=== PATIENT | female | born 1955 | race African-American/Black ===

== ENCOUNTER 2016-09-24 13:43 | Inpatient (IN) | payer MEDICAID ==
--- NOTE | 2016-09-24 14:30 | EDPRACDOC ---
- General Information Chief Complaint: Generalized Weakness Stated Complaint: GENERALIZED ACHING Time Seen by Provider: 09/24/16 14:24 Information Source: Patient, Family Mode of Arrival: Car Home Medications: Home Medications Albuterol Sulfate [Proair Hfa] 2 puff INH DAILY PRN 05/11/15 Amitriptyline HCl 25 mg PO QHS 05/11/15 Clonazepam [Klonopin] 0.5 mg PO BID PRN 05/11/15 Levetiracetam [Keppra] 500 mg PO BID 05/11/15 Metformin HCl [Metformin HCl ER] 500 mg PO DAILY 05/11/15 Nitroglycerin Sublingual Tab [NTG (NitroStat Sublingual Tab)] 0.4 mg SL Q5MX3 PRN 05/11/15 Pantoprazole Sodium [Protonix] 40 mg PO DAILY 05/11/15 Potassium Chloride [Klor-Con M20] 20 meq PO DAILY 05/11/15 Simvastatin [Zocor] 40 mg PO DAILY 05/11/15 Meclizine HCl [Antivert] 25 mg PO TID PRN 05/22/15 Topiramate [Topamax] 25 mg PO BID 05/22/15 Lisinopril [Prinivil] 10 mg PO DAILY #30 tablet 05/26/15 Aspirin (Enteric Coated) [Halfprin] 81 mg PO DAILY 09/24/16 Diclofenac Sodium [Voltaren] 75 mg PO BID 09/24/16 Gabapentin 800 mg PO TID 09/24/16 Metoprolol Tartrate [Lopressor] 25 mg PO BID 09/24/16 Allergies/Adverse Reactions: Allergies Allergy/AdvReac Type Severity Reaction Status Date / Time phenytoin sodium Allergy Unknown Rash-Genera Verified 05/12/16 15:36 [From Dilantin] lized phenytoin sodium extended Allergy Unknown Rash-Genera Verified 05/12/16 15:36 [From Dilantin] lized - History of Present Illness Onset: yesterday HPI: PT COMPLAINS OF GENERALIZED WEAKNESS, FEVER, CHILLS, PAIN WITH URINATION, SYMPTOMS BEGAN YESTERDAY, NO MEDS GIVEN. Relevant History: Reports: Chronic Illness Treated Infection: None Contact Exposure To: NONE Travel To: NONE Max Temperature: 103 F Improves With: Reports: Nothing Symptoms: Reports: Chills, Dysuria, Fever, Urgency, Lethargy, Myalgia, Weakness. Denies: Cough, Ear Pain, Frequency, Nasal Symptoms, Rash, SOB, Sore Throat, Abdominal Pain, Confusion, Headache, Nausea, Vomiting ED Past Medical History - History Reviewed Yes Nurses notes reviewed and agree except as marked - Patient Medical History Neurological History: Reports: Seizures Cardiac History: Reports: Hypertension, Cardiac Catheterization (04/2009 NORMAL EF NO CORONARY ARTERY DISEASE), Hypercholesterolemia GI/ History: Reports: Gastroesophageal Reflux. Denies: Urinary Tract Infection Musculoskeletal History: Reports: Arthritis Psychological History: Denies: Depression Systemic History: Reports: Diabetes Surgical History: Reports: Cholecystectomy (), Cardiac Catheterization ( NORMAL EF NO CORONARY ARTERY DISEASE) - Family Medical History Reports: Hypertension (MOTHER), Diabetes (MOTHER), Cancer (MOTHER UNKNOWN CANCER ), Cardiac Disorders (MOTHER). Denies: Stroke - Social Medical History Smoking Status: Never smoker ETOH: None Substance Abuse: None EDM Review of Systems - Review of Systems Constitutional: Chills, Fever, Fatigue, Weakness Eyes: negative: Blurred Vision, Double Vision Ears: negative: Drainage Throat: negative: Pain Nose: negative: Congestion, Discharge Respiratory: negative: Cough, Shortness of Breath, Wheezing Cardiovascular: negative: Chest Pain, Palpitations Gastrointestinal: negative: Diarrhea, Nausea, Pain, Vomiting Genitourinary: Dysuria, Frequency Neurological: Headache. negative: Dizziness, Numbness, Weakness Musculoskeletal: No Symptoms Reported Integumentary: No Symptoms Reported - Physical Exam Constitutional: Alert (Awake), No apparent distress Oriented to: Time, Person, Place Last recorded Vital Signs: Last Vital Signs Temp 103 F H 09/24/16 14:07 Pulse 119 09/24/16 14:07 Resp 21 09/24/16 14:07 BP 170/107 H 09/24/16 14:07 Pulse Ox 91 09/24/16 14:07 Oxygen Pulse Oxygen Saturation 91 O2 Device Room Air Oxygen Flow Rate Fraction of Inspired Oxygen ( FIO2) - HEENT Head: Normal ( normocephalic) Eye Exam: Normal (PERRL, EOMI, Sclera white) Oropharynx: Normal (Pharynx:Moist without exudate,Gums-no swelling) Tympanic Membrane: Normal ENT EAC: Normal TMJ: Normal Nose: No Symptoms Reported (septum midline) Neck: Normal (FROM, trachea at midline) - Respiratory/Cardiovascular Respiratory: Normal - CTA (BBS clear to auscultation without adventitious sounds ) Cardiovascular: Normal (RRR without murmur, gallop or rub) - GI Auscultation: Normal (NABS) Palpation: Normal (Soft,No rebound or guarding, non distended) Tenderness: Non tender Sahni's Sign: Negative - Musculoskeletal Back: Normal (Non-Tender) Extremities: Normal (Normal tone, Pulses 2+ No cyanosis or edema, FROM) - Integumentary Skin: Normal, Warm, Dry Lymphatics: Normal (no adenopathy) - Neurologic Memory Impaired: Normal Motor Function: Normal (Normal tone, Pulses 2+ No cyanosis or edema, FROM) Cranial Nerve: Normal (CN II-X11 intact sensation, strength 5/5) Cerebellar: Normal Mood Description: Normal Perception: Normal - Differential Diagnosis Bronchitis, Dehydration, Influenza, Otitis Media, Pneumonia, Sepsis - Re-evaluation Re-evaluation 1 Re-evaluation Time: 15:09 (STABLE, PULSE OX 96% ON 2LPM) - Results 09/24/16 14:25 09/24/16 14:25 09/24/16 15:09 Laboratory Results - last 24 hr 09/24/16 09/24/16 09/24/16 14:25 14:25 14:25 WBC 16.2 H RBC 4.06 L Hgb 11.2 L Hct 34.6 L MCV 85 MCH 27.6 MCHC 32.4 L RDW 14.7 H Plt Count 278 MPV 9.2 Neut % (Auto) 84.8 H Lymph % (Auto) 8.0 L [place] % (Auto) 6.8 Eos % (Auto) 0.0 Baso % (Auto) 0.4 Absolute Neuts (auto) 13.61 H Absolute Lymphs (auto) 1.30 PT 11.7 H INR 1.1 APTT 33.4 Puncture Site pH pCO2 pO2 HCO3 Total CO2 Base Excess FiO2 % Specimen Drawn By Sodium 144 Potassium 3.5 Chloride 103 Carbon Dioxide 25 Anion Gap 20 H BUN 26 H Creatinine 1.90 H Estimated GFR (MDRD) 33 L Glucose 121 H Calculated Osmolality 283 Lactic Acid Calcium 9.2 Total Bilirubin 0.6 AST 30 ALT 18 Alkaline Phosphatase 92 Troponin I < 0.01 Vek-J-Soiidtxrsbv Pept 1870 H Total Protein 8.6 H Albumin 4.2 09/24/16 09/24/16 14:25 14:45 WBC RBC Hgb Hct MCV MCH MCHC RDW Plt Count MPV Neut % (Auto) Lymph % (Auto) [place] % (Auto) Eos % (Auto) Baso % (Auto) Absolute Neuts (auto) Absolute Lymphs (auto) PT INR APTT Puncture Site Right radial pH 7.440 pCO2 35.0 pO2 55.0 L HCO3 23.8 Total CO2 24.9 Base Excess 0.1 FiO2 % 21% Specimen Drawn By Si Sodium Potassium Chloride Carbon Dioxide Anion Gap BUN Creatinine Estimated GFR (MDRD) Glucose Calculated Osmolality Lactic Acid 1.0 Calcium Total Bilirubin AST ALT Alkaline Phosphatase Troponin I Oto-S-Rgszzpzmasx Pept Total Protein Albumin - EKG EKG #1 EKG Time: 14:28 -: Yes EKG interpreted by me Rate: bpm: 113 [place]: Normal Rhythm: ST Block: None Hypertrophy: None ST: Nonsp Comparison: 05/22/15 (NO CHANGE) - Diagnostic Imaging CXR Image interpreted by: Radiologist CHEST 2 VIEW COMPARISON: Chest radiograph May 24, [address] May 25, 2015 FINDINGS: There is airspace consolidation in the right lower lobe. Lungs elsewhere clear. Heart is mildly enlarged with pulmonary vascularity within normal limits. No adenopathy. IMPRESSION: Right lower lobe airspace consolidation. Followup PA and lateral chest radiographs recommended in 3-4 weeks following trial of antibiotic therapy to ensure resolution and exclude underlying malignancy. - Additional Information DISCUSSED WITH DR ROMERO, HE WILL DISCUSS WITH HOSPITALIST - Departure Condition: Stable Final Diagnosis: Community acquired pneumonia, Acute respiratory failure with hypoxia Sepsis Qualifiers: Sepsis type: sepsis due to unspecified organism Qualified Code(s): A41.9 - Sepsis, unspecified organism UTI (urinary tract infection) Qualifiers: Urinary tract infection type: acute cystitis Hematuria presence: without hematuria Qualified Code(s): N30.00 - Acute cystitis without hematuria Education/Counseling Given To: Patient, Family Member Education/Counseling Given Regarding: Diagnosis, Treatment, Prognosis, Follow Up Referrals: Carmen Miller NP [Primary Care Provider] - One Week
[2016-09-24] MEDS ORDERED: ACETAMINOPHEN 325 MG/TAB TABLET PO ONE (14:31)
[2016-09-24] MEDS ORDERED: NS 1,000 ML IV ONE ×2 (14:31→16:46)
[2016-09-24 14:48] LABS: AUTOMATED BASOPHIL 0.4 % (0-2); AUTOMATED MONOCYTE 6.8 % (3-10); AUTOMATED NEUTROPHIL 84.8 % (45-76); MPV 9.2 fL (7.4-10.4)
[2016-09-24 14:49] LABS: BLOOD UREA NITROGEN 26 MG/DL (7-17); CALCIUM 9.2 MG/DL (8.4-10.2); CALCULATED OSMOLALITY 283 MOs/Kg (270-290); CHLORIDE 103 mEq/L (98-107); GLUCOSE 121 MG/DL (70-99); PARTIAL THROMB. TIME 33.4 SEC (22-35); PT-INR 1.1; SODIUM LEVEL 144 mEq/L (137-146); TOTAL PROTEIN 8.6 G/DL (6.3-8.2)
[2016-09-24 14:50] LABS: ABG Draw Site Right Radial; ALLEN'S TEST PASS; BEb 0.1 (+/- 2); TCO2 24.9 MMOL/L (23-27)
[2016-09-24 14:51] LABS: ABG Draw Tech SI
--- NOTE | 2016-09-24 14:55 | DIRPT ---
CLINICAL DATA: Fever and chills EXAM: CHEST 2 VIEW COMPARISON: Chest radiograph May 24, [address] May 25, 2015 FINDINGS: There is airspace consolidation in the right lower lobe. Lungs elsewhere clear. Heart is mildly enlarged with pulmonary vascularity within normal limits. No adenopathy. IMPRESSION: Right lower lobe airspace consolidation. Followup PA and lateral chest radiographs recommended in 3-4 weeks following trial of antibiotic therapy to ensure resolution and exclude underlying malignancy. Electronically Signed By: Awais Morrell III, M.D. On: 09/24/2016 14:53
[2016-09-24] MEDS ORDERED: Levofloxacin 750 mg/150 ml D5W 750 MG/150 ML RTU IV ONE (15:07)
[2016-09-24 16:06] LABS: LEUKOCYTES/URINE 2+ (NEGATIVE); NITRITE/URINE NEG (NEGATIVE); URINE OCCULT BLOOD 1+ (NEG/TRACE); WBC/URINE 20-30 (0-5)
[2016-09-24] MEDS ORDERED: CEFTRIAXONE 1 GM in D5W 100 ML IV ONE (16:20)
[2016-09-24] MEDS ORDERED: ONDANSETRON HCL 4 MG/2 ML VIAL IV PRN (16:46)
[2016-09-24] MEDS ORDERED: ACETAMINOPHEN 650 MG SUPP PR PRN (16:46)
[2016-09-24] MEDS ORDERED: Albuterol/Ipratropium Neb 3 ML NEB NEB PRN (16:46)
[2016-09-24] MEDS ORDERED: TEMAZEPAM 15 MG CAP PO PRN (16:46)
[2016-09-24] MEDS ORDERED: SODIUM CHLORIDE 0.9% 3 ML FLUSH FLUSH PRN (16:46)
[2016-09-24] MEDS ORDERED: DOCUSATE-SENNA CONCENTRATE TAB PO PRN (16:46)
[2016-09-24] MEDS ORDERED: SIMETHICONE 80 MG TAB PO PRN (16:46)
[2016-09-24] MEDS ORDERED: BENZONATATE 100 MG PERLES PO PRN (16:46)
[2016-09-24] MEDS ORDERED: METOCLOPRAMIDE 10 MG/2 ML VIAL IV PRN (16:46)
[2016-09-24] MEDS ORDERED: NITROGLYCERINE 0.4 MG TAB SL PRN (16:51)
[2016-09-24] MEDS ORDERED: GLUCAGON 1 MG VIAL SQ PRN (16:53)
[2016-09-24] MEDS ORDERED: GLUCOSE (ORAL GEL) 15 GM TUBE PO PRN (16:53)
[2016-09-24] MEDS ORDERED: DEXTROSE 25 GM/50 ML PFS IV PRN (16:53)
--- NOTE | 2016-09-24 17:44 | HISTPHYS ---
- Chief Complaint DIZZINESS & WEAKNESS - History of Present Illness Isabela Montana is a 60 year old Afro [place] woman with diabetes who presents with a 3-4 days history of weakness and dizziness. She denies cough or chest congestion, has not had any nausea or vomiting. Her stated that her sugar is not any different from usual (he usually check it for her once or twice a day). However, the past two days she has been more confused and lethargic and difficult to arouse. He felt like her breathing was noisier than usual, so her brought her in to be checked out. She did not have any fever that he was aware of. On arrival to the ED, she was febrile with a temperature of 103 degrees Fahrenheit, tachycardic, and has a WBC of 16,200 with a right lower lobe pneumonia. These findings are consistent with sepsis. She will be admitted for further evaluation and management. - Medical History Cardiac History: Reports: Hypertension, Cardiac Catheterization (04/2009 NORMAL EF NO CORONARY ARTERY DISEASE), Hypercholesterolemia Respiratory History: Reports: Cough GI/ History: Reports: Gastroesophageal Reflux. Denies: Urinary Tract Infection Musculoskeletal History: Reports: Arthritis Systemic History: Reports: Diabetes Neurological History: Reports: Seizures Psychological History: Denies: Depression - Surgical History Reports: Cholecystectomy (), Cardiac Catheterization (04/2009 NORMAL EF NO CORONARY ARTERY DISEASE) - Medictions/Allergies Allergies phenytoin sodium [From Dilantin] Allergy (Unknown, Verified 05/12/16 15:36) Rash-Generalized phenytoin sodium extended [From Dilantin] Allergy (Unknown, Verified 05/12/16 15 :36) Rash-Generalized Current Medication List: Reviewed Home Medications Albuterol Sulfate [Proair Hfa] 2 puff INH DAILY PRN 05/11/15 Amitriptyline HCl 25 mg PO QHS 05/11/15 Clonazepam [Klonopin] 0.5 mg PO BID PRN 05/11/15 Levetiracetam [Keppra] 500 mg PO BID 05/11/15 Metformin HCl [Metformin HCl ER] 500 mg PO DAILY 05/11/15 Nitroglycerin Sublingual Tab [NTG (NitroStat Sublingual Tab)] 0.4 mg SL Q5MX3 PRN 05/11/15 Pantoprazole Sodium [Protonix] 40 mg PO DAILY 05/11/15 Potassium Chloride [Klor-Con M20] 20 meq PO DAILY 05/11/15 Simvastatin [Zocor] 40 mg PO DAILY 05/11/15 Meclizine HCl [Antivert] 25 mg PO TID PRN 05/22/15 Topiramate [Topamax] 25 mg PO BID 05/22/15 Lisinopril [Prinivil] 10 mg PO DAILY #30 tablet 05/26/15 Aspirin (Enteric Coated) [Halfprin] 81 mg PO DAILY 09/24/16 Diclofenac Sodium [Voltaren] 75 mg PO BID 09/24/16 Gabapentin 800 mg PO TID 09/24/16 Metoprolol Tartrate [Lopressor] 25 mg PO BID 09/24/16 - Family History Reports: Hypertension (MOTHER), Diabetes (MOTHER), Cancer (MOTHER UNKNOWN CANCER ), Cardiac Disorders (MOTHER). Denies: Stroke - Social History Travel Outside of [place] in the Last 3 Months?: No Lives: with Spouse Smoking Status: Never smoker Social History: Denies: Alcohol Use, Substance Use Disorder - Review of Systems Constitutional: Chills, Fever, Fatigue, Weakness Eyes: No Symptoms Reported Ears: No Symptoms Reported Nose: No Symptoms Reported Mouth: Dry Mouth, Poor Dentition Throat/Neck: Hoarseness, Snoring Respiratory: Cough, Shortness of Breath Cardiovascular: Palpitations. negative: Edema Gastrointestinal: Nausea, Heartburn, Appetite Changes Genitourinary: Dysuria, Frequency, Nocturia, Urgency to urinate, Postmenopause Neurological: Dizziness, Headache, Numbness, Speech Difficulty, Weakness, Memory Changes Musculoskeletal:: No Symptoms Reported, Weakness Integumentary: No Symptoms Reported Allergic/Immunologic: No Symptoms Reported Hematologic: No Symptoms Reported Endocrine: No Symptoms Reported, Polyuria, Diabetes Psychiatric: No Symptoms Reported - Physical Exam Vital Signs: Initial Vitals Temperature 103 F H 09/24/16 14:07 Pulse Rate 119 09/24/16 14:07 Respiratory Rate 21 09/24/16 14:07 Blood Pressure 170/107 H 09/24/16 14:07 Pulse Oxygen Saturation 91 09/24/16 14:07 Constitutional: Distress (acutely ill,), Decreased Consciousness - HEENT Head: Normal Eye: Conjunctival Injection (PERRL: EOMI) Oropharynx: Membranes Dry. negative: Exudate Tympanic Membrane: Dull, Obscured (partially) ENT EAC: Cerumen Nose: Congestion Respiratory: Rales, Rhonchi, Tachypnea Cardiovascular: Tachycardia (regular rhythm and rate, 2/6 sys murmur URSB) - GI Auscultation: Normal Palpation: Normal (soft, nontender, no mass, no hernia). negative: Enlarged liver, Enlarged spleen, Fluid Wave, Mass Tenderness: Non tender Sahni's Sign: Negative Rectal Exam: Deferred - Exam Deferred: Yes - Musculoskeletal Back: Normal Extremities: Normal, Pedal Pulse (normal), Radial Pulse (normal). negative: Edema Spine: non-tender, full range of motion, normal alignment, normal inspection - Integumentary Skin: Hot, Dry Lymphatics: Normal - Neurologic Memory Impaired: Short-term Motor Function: Normal Cranial Nerve: Normal Cerebellar: Unable to Test Mood Description: Other (drowsy,somnolent) Thought: Rambling Conversation Perception: Other (somnolent) - Focused CV Perfusion Exam Date exam occurred: 09/24/16 Time of Exam: 17:35 Vital Signs: Last Vital Signs Temp 100.2 F 09/24/16 17:26 Pulse 109 09/24/16 17:26 Resp 22 09/24/16 17:26 BP 85/51 L 09/24/16 17:26 Pulse Ox 98 09/24/16 17:26 Respiratory: Respiratory distress, Rales, Rhonchi Cardiovascular/Chest: Tachycardia, Systolic murmur Peripheral pulses: Full: Posterior tibialis (R), Posterior tibialis (L), Bounding: Radial (R), Radial (L), Dorsalis pedis (R), Dorsalis pedis (L) Skin Color: Flushed Skin Turgor: <3 Seconds - Lab Results Selected Entries 09/24/16 17:26 Temperature 100.2 F Pulse Rate 109 Respiratory 22 Rate Blood Pressure 62 Mean Blood Pressure 85/51 L Pulse Oxygen 98 Saturation Oxygen Flow 2 Rate Laboratory Tests 09/24/16 09/24/16 09/24/16 14:25 14:25 14:25 WBC 16.2 H Hgb 11.2 L Hct 34.6 L Plt Count 278 Neut % (Auto) 84.8 H Lymph % (Auto) 8.0 L [place] % (Auto) 6.8 PT 11.7 H INR 1.1 APTT 33.4 Puncture Site pH pCO2 pO2 HCO3 Total CO2 Base Excess FiO2 % Sodium 144 Potassium 3.5 Chloride 103 Carbon Dioxide 25 Anion Gap 20 H BUN 26 H Creatinine 1.90 H Estimated GFR (MDRD) 33 L Glucose 121 H Calculated Osmolality 283 Lactic Acid Calcium 9.2 Total Bilirubin 0.6 AST 30 ALT 18 Alkaline Phosphatase 92 Troponin I < 0.01 Tba-E-Uvjdrmgwrxv Pept 1870 H Total Protein 8.6 H Albumin 4.2 Urine Color Urine Clarity Urine pH Ur Specific [place] Urine Protein Urine Glucose (UA) Urine Ketones Urine Nitrite Urine RBC Urine WBC Urine Bacteria 09/24/16 09/24/16 09/24/16 14:25 14:45 15:40 WBC Hgb Hct Plt Count Neut % (Auto) Lymph % (Auto) [place] % (Auto) PT INR APTT Puncture Site Right radial pH 7.440 pCO2 35.0 pO2 55.0 L HCO3 23.8 Total CO2 24.9 Base Excess 0.1 FiO2 % 21% Sodium Potassium Chloride Carbon Dioxide Anion Gap BUN Creatinine Estimated GFR (MDRD) Glucose Calculated Osmolality Lactic Acid 1.0 Calcium Total Bilirubin AST ALT Alkaline Phosphatase Troponin I Iki-S-Avukbhpwdqc Pept Total Protein Albumin Urine Color Yellow Urine Clarity Cldy Urine pH 6.0 Ur Specific [place] 1.020 Urine Protein 2+ H Urine Glucose (UA) Neg Urine Ketones Neg Urine Nitrite Neg Urine RBC 2-5 Urine WBC 20-30 H Urine Bacteria 4+ H 09/24/16 17:10 WBC Hgb Hct Plt Count Neut % (Auto) Lymph % (Auto) [place] % (Auto) PT INR APTT Puncture Site pH pCO2 pO2 HCO3 Total CO2 Base Excess FiO2 % Sodium Potassium Chloride Carbon Dioxide Anion Gap BUN Creatinine Estimated GFR (MDRD) Glucose Calculated Osmolality Lactic Acid Calcium Total Bilirubin AST ALT Alkaline Phosphatase Troponin I 0.01 Nqw-E-Lyztooadeyp Pept Total Protein Albumin Urine Color Urine Clarity Urine pH Ur Specific [place] Urine Protein Urine Glucose (UA) Urine Ketones Urine Nitrite Urine RBC Urine WBC Urine Bacteria - Diagnostic Findings CXR: IMPRESSION: Right lower lobe airspace consolidation. Followup PA and lateral chest radiographs recommended in 3-4 weeks following trial of antibiotic therapy to ensure resolution and exclude underlying malignancy. Electronically Signed By: Awais Morrell III, M.D. On: 09/24/2016 14:53 EKG:sinus tachy, rate 113 bpm, no acute ST-changes - Assessment (1) Sepsis A41.9 - SEPSIS, UNSPECIFIED ORGANISM Acute Present on Admission: Yes Qualifiers: Sepsis type: sepsis due to unspecified organism Qualified Code(s): A41.9 - Sepsis, unspecified organism Admit. Criteria are tachycardia, fever, leukocytosis, and pneumonia. (Patient also became hypotensive after being in ED for a few hours.) Initiate evidence based sepsis protocol. Obtain blood and urine specimens for culture, sputum specimen if able to obtain one, and begin rapid IV fluid replacement and IV antibiotics. (2) Acute respiratory failure with hypoxia J96.01 - ACUTE RESPIRATORY FAILURE WITH HYPOXIA Acute Present on Admission: Yes Provide supplemental oxygen, monitor O2 sats & ABG as needed. DuoNeb and incentive spirometry. (3) Community acquired pneumonia J18.9 - PNEUMONIA, UNSPECIFIED ORGANISM Acute Present on Admission: Yes RLL infiltrate on CXR: begin IV antibiotics with Rocephin and Zithromax. Follow blood cultures & CXR. Maintain O2sat above 92%. (4) UTI (urinary tract infection) N39.0 - URINARY TRACT INFECTION, SITE NOT SPECIFIED Acute Qualifiers: Urinary tract infection type: acute cystitis Hematuria presence: without hematuria Qualified Code(s): N30.00 - Acute cystitis without hematuria Culture urine and continue with antibiotics as above. (5) Metabolic encephalopathy G93.41 - METABOLIC ENCEPHALOPATHY Acute Present on Admission: Yes Patient obtunded at present, likely due to acute illness. Will treat underlying sepsis and dehydration and follow clinical course. (6) Poorly controlled diabetes mellitus E11.65 - TYPE 2 DIABETES MELLITUS WITH HYPERGLYCEMIA Acute Present on Admission: Yes Monitor CBG prior to meals and at HS. Use SSI (moderate dose). Hg A1c=6.0 Follow diabetic diet. (7) Dehydration E86.0 - DEHYDRATION Acute Present on Admission: Yes Hydrate aggressively per sepsis protocol. Case Care Discussed with: Patient, Family, Nursing Staff Critical Care: Yes Couseling Time (>50% in counseling/coordination): Yes Code: 291
[2016-09-24] MEDS ORDERED: ENOXAPARIN 40 MG/0.4 ML PFS SQ SCH (18:00)
[2016-09-24] MEDS: NS 2,000 ML IV ONE ×2 (18:26→20:09)
[2016-09-24] MEDS ORDERED: AZITHROMYCIN 500 MG in D5W 250 ML IV SCH (20:00)
[2016-09-24] MEDS: REGULAR INSULIN 100 UNITS/ML - 3 ML VIAL SQ SCH ×2 (20:09→21:06)
[2016-09-24] MEDS: SODIUM CHLORIDE 0.9% 3 ML FLUSH FLUSH SCH (20:09)
[2016-09-24] MEDS: HYDROCORTISONE 100 MG/2 ML VIAL IV SCH (20:26)
[2016-09-24] MEDS: METOPROLOL TARTRATE 25 MG TAB PO SCH (20:27)
[2016-09-24] MEDS: GABAPENTIN 800 MG TAB PO SCH (20:31)
[2016-09-24] MEDS: LEVETIRACETAM 250 MG TAB PO SCH (20:31)
[2016-09-24] MEDS: TOPIRAMATE 25 MG TABLET PO SCH (20:31)
[2016-09-24] MEDS: AMITRIPTYLINE 25 MG TAB PO SCH (20:31)
[2016-09-24] MEDS: AZITHROMYCIN 500 MG in D5W 250 ML IV SCH (21:07)
[2016-09-24] MEDS: ACETAMINOPHEN 325 MG/TAB TABLET PO PRN (21:37)
[2016-09-24] MEDS: ALBUTEROL 0.083% 3 ML NEB NEB SCH (21:39)
[2016-09-25] MEDS: HYDROCORTISONE 100 MG/2 ML VIAL IV SCH ×5 (00:58→23:29)
[2016-09-25] MEDS: NS 1,000 ML IV SCH ×4 (00:59→18:32)
[2016-09-25] MEDS: ALBUTEROL 0.083% 3 ML NEB NEB SCH ×4 (03:08→19:27)
[2016-09-25] MEDS: SODIUM CHLORIDE 0.9% 3 ML FLUSH FLUSH SCH ×2 (05:19→18:06)
[2016-09-25] MEDS: REGULAR INSULIN 100 UNITS/ML - 3 ML VIAL SQ SCH ×4 (05:20→21:26)
[2016-09-25] MEDS: GABAPENTIN 800 MG TAB PO SCH ×3 (05:25→21:28)
[2016-09-25] MEDS: PANTOPRAZOLE 40 MG TAB PO SCH (05:25)
[2016-09-25 06:55] LABS: MPV 9.2 fL (7.4-10.4)
[2016-09-25 07:30] LABS: SEG NEUTROPHIL 84 % (45-76)
[2016-09-25 07:39] LABS: BLOOD UREA NITROGEN 28 MG/DL (7-17); CALCIUM 7.9 MG/DL (8.4-10.2); CALCULATED OSMOLALITY 284 MOs/Kg (270-290); CHLORIDE 111 mEq/L (98-107); GLUCOSE 152 MG/DL (70-99); SODIUM LEVEL 143 mEq/L (137-146)
[2016-09-25] MEDS: MetFORMIN, EXT REL 500 MG TAB PO SCH (09:12)
[2016-09-25] MEDS: TOPIRAMATE 25 MG TABLET PO SCH ×2 (09:12→21:27)
[2016-09-25] MEDS: METOPROLOL TARTRATE 25 MG TAB PO SCH ×2 (09:13→21:27)
[2016-09-25] MEDS: LEVETIRACETAM 250 MG TAB PO SCH ×2 (09:13→21:28)
[2016-09-25] MEDS: POTASSIUM CHLORIDE 20 MEQ TAB PO SCH (09:13)
[2016-09-25] MEDS: SIMVASTATIN 40 MG TAB PO SCH (09:14)
[2016-09-25] MEDS: LISINOPRIL 10 MG TAB PO SCH (09:17)
[2016-09-25] MEDS ORDERED: Vaccine Screening Complete SCH (10:00)
[2016-09-25] MEDS: CEFTRIAXONE 1 GM in D5W 100 ML IV SCH (18:05)
[2016-09-25] MEDS: ENOXAPARIN 60 MG/0.6 ML PFS SQ SCH (18:39)
--- NOTE | 2016-09-25 20:07 | GENMEDPROG ---
Chief Complaint: sepsis, pneumonia, respiratory failure, UTI, TME, DM-2, Subjective Note: more alert and oriented today Currently: Reports: Cough, Wheezing, HERNANDEZ, SOB, Fever/Chills. Denies: Ambulating DVT Prophylaxis: Yes - Physical Examination Vital Signs and I&O: Last Vital Signs Temp 98.1 F 09/25/16 19:49 Pulse 105 09/25/16 19:49 Resp 18 09/25/16 19:49 BP 128/63 09/25/16 19:49 Pulse Ox 96 09/25/16 19:49 Oxygen Pulse Oxygen Saturation 96 O2 Device Room Air Oxygen Flow Rate 1 Fraction of Inspired Oxygen ( FIO2) Intake & Output 09/22/16 09/23/16 09/24/16 09/25/16 23:59 23:59 23:59 23:59 Intake Total 920 6928 Output Total 1500 Balance 920 5428 Patient's weight 100.062 kg 102.421 kg General: Alert, Oriented x3, Cooperative, No acute distress, Obese, Weakness, Fatigue HEENT: Normal, PERRLA, EOMI, Anicteric Sclera, Mucous membr. moist/pink Neck: Full range of motion, Normal Trachea alignment, Normal inspection, No Masses palpable Lymphatics: Normal Respiratory: Rales, Rhonchi, Tachypnea Cardiovascular: Regular rate and rhythm, Normal S1, Normal S2 GI: Normal bowel sounds, Soft, Non tender, No masses, Obese Extremities/Musculoskeletal: Normal pulses, DJD Skin: Warm,Dry and Intact, No rashes Neurological: Normal speech, Strength at 5/5 X4 ext, Normal tone, Cranial nerves 3-12 NL Psych/Mental Status: Appropriate, Normal Affect, Cooperative Lab/DI/Studies Reviewed: Laboratory Tests 09/25/16 09/25/16 09/25/16 06:15 06:15 06:15 WBC 11.9 H Hgb 9.1 L D Hct 28.2 L Plt Count 209 Seg Neuts % (Manual) 84 H Band Neutrophils % 8 H Lymphocytes % (Manual) 4 L Sodium 143 Potassium 3.6 Chloride 111 H Carbon Dioxide 21 L Anion Gap 15 BUN 28 H Creatinine 1.60 H Estimated GFR (MDRD) 40 L Glucose 152 H POC Capillary Glucose Calculated Osmolality 284 Lactic Acid 0.9 Calcium 7.9 L Magnesium 2.10 Uhv-M-Whgzhyhobik Pept 1260 H 09/25/16 11:17 WBC Hgb Hct Plt Count Seg Neuts % (Manual) Band Neutrophils % Lymphocytes % (Manual) Sodium Potassium Chloride Carbon Dioxide Anion Gap BUN Creatinine Estimated GFR (MDRD) Glucose POC Capillary Glucose 152 H Calculated Osmolality Lactic Acid Calcium Magnesium Qqm-W-Vfsotlrpnke Pept Microbiology 09/24/16 15:40 Urine - In/Out Catheter Urine Culture - Preliminary Escherichia coli - Assessment (1) Sepsis Acute A41.9 - SEPSIS, UNSPECIFIED ORGANISM Qualifiers: Sepsis type: sepsis due to unspecified organism Qualified Code(s): A41.9 - Sepsis, unspecified organism Comment/Plan: Admit. Criteria are tachycardia, fever, leukocytosis, and pneumonia. (Patient also became hypotensive after being in ED for a few hours. ) Initiate evidence based sepsis protocol. Obtain blood and urine specimens for culture, sputum specimen if able to obtain one, and begin rapid IV fluid replacement and IV antibiotics. (2) Acute respiratory failure with hypoxia Acute J96.01 - ACUTE RESPIRATORY FAILURE WITH HYPOXIA Comment/Plan: Provide supplemental oxygen, monitor O2 sats & ABG as needed. DuoNeb and incentive spirometry. (3) Community acquired pneumonia Acute J18.9 - PNEUMONIA, UNSPECIFIED ORGANISM Comment/Plan: RLL infiltrate on CXR: begin IV antibiotics with Rocephin and Zithromax. Follow blood cultures & CXR. Maintain O2sat above 92%. (4) UTI (urinary tract infection) Acute N39.0 - URINARY TRACT INFECTION, SITE NOT SPECIFIED Qualifiers: Urinary tract infection type: acute cystitis Hematuria presence: without hematuria Qualified Code(s): N30.00 - Acute cystitis without hematuria Comment/Plan: Culture urine and continue with antibiotics as above. (5) Metabolic encephalopathy Acute G93.41 - METABOLIC ENCEPHALOPATHY Comment/Plan: Patient obtunded at present, likely due to acute illness. Will treat underlying sepsis and dehydration and follow clinical course. (6) Poorly controlled diabetes mellitus Acute E11.65 - TYPE 2 DIABETES MELLITUS WITH HYPERGLYCEMIA Comment/Plan: Monitor CBG prior to meals and at HS. Use SSI (moderate dose). Hg A1c=6.0 Follow diabetic diet. (7) Dehydration Acute E86.0 - DEHYDRATION Comment/Plan: Hydrate aggressively per sepsis protocol.
[2016-09-25] MEDS: AMITRIPTYLINE 25 MG TAB PO SCH (21:28)
[2016-09-25] MEDS: AZITHROMYCIN 500 MG in D5W 250 ML IV SCH (21:28)
[2016-09-26] MEDS: ALBUTEROL 0.083% 3 ML NEB NEB SCH ×4 (01:36→19:42)
[2016-09-26] MEDS: GABAPENTIN 800 MG TAB PO SCH ×3 (05:12→21:54)
[2016-09-26] MEDS: HYDROCORTISONE 100 MG/2 ML VIAL IV SCH ×2 (05:13→12:22)
[2016-09-26] MEDS: REGULAR INSULIN 100 UNITS/ML - 3 ML VIAL SQ SCH ×4 (05:13→21:49)
[2016-09-26] MEDS: PANTOPRAZOLE 40 MG TAB PO SCH (05:13)
[2016-09-26] MEDS: SODIUM CHLORIDE 0.9% 3 ML FLUSH FLUSH SCH ×2 (06:12→16:54)
--- NOTE | 2016-09-26 07:45 | DIRPT ---
CLINICAL DATA: Follow-up of pneumonia EXAM: PORTABLE CHEST 1 VIEW COMPARISON: PA and lateral chest x-ray of September 24, 2016 FINDINGS: The left lung is well expanded and grossly clear. On the right there is persistent alveolar opacity in the mid and lower lung. There is no pleural effusion. The cardiac silhouette is mildly enlarged. The pulmonary vascularity is normal. The mediastinum is normal in width. IMPRESSION: Persistent right-sided pneumonia. Mild cardiomegaly without significant pulmonary vascular congestion. Electronically Signed By: Danilo Harris M.D. On: 09/26/2016 07:43
[2016-09-26] MEDS: LISINOPRIL 10 MG TAB PO SCH (09:10)
[2016-09-26] MEDS: SIMVASTATIN 40 MG TAB PO SCH (09:10)
[2016-09-26] MEDS: POTASSIUM CHLORIDE 20 MEQ TAB PO SCH (09:11)
[2016-09-26] MEDS: METOPROLOL TARTRATE 25 MG TAB PO SCH ×2 (09:11→21:34)
[2016-09-26] MEDS: LEVETIRACETAM 250 MG TAB PO SCH ×2 (09:11→21:34)
[2016-09-26] MEDS: TOPIRAMATE 25 MG TABLET PO SCH ×2 (09:11→21:33)
[2016-09-26] MEDS: NS 1,000 ML IV SCH ×3 (10:18→21:36)
--- NOTE | 2016-09-26 15:10 | GENMEDPROG ---
Chief Complaint: sepsis, pneumonia, UTI w/ E. coli, TME DM-2 Currently: Reports: Cough, Wheezing, HERNANDEZ, SOB, Fever/Chills. Denies: Ambulating DVT Prophylaxis: Yes - Physical Examination Vital Signs and I&O: Last Vital Signs Temp 98.2 F 09/26/16 12:48 Pulse 100 09/26/16 14:00 Resp 18 09/26/16 12:48 BP 141/70 09/26/16 12:48 Pulse Ox 92 09/26/16 12:48 Oxygen Pulse Oxygen Saturation 92 O2 Device Room Air Oxygen Flow Rate 1 Fraction of Inspired Oxygen ( FIO2) Intake & Output 09/23/16 09/24/16 09/25/16 09/26/16 23:59 23:59 23:59 23:59 Intake Total 920 0537 1389 Output Total 2000 600 Balance 920 4925 789 Patient's weight 100.062 kg 102.421 kg 104.78 kg General: Alert, Oriented x3, Cooperative, No acute distress, Obese, Weakness, Fatigue HEENT: Normal, PERRLA, EOMI, Anicteric Sclera, Mucous membr. moist/pink Neck: Full range of motion, Normal Trachea alignment, Normal inspection, No Masses palpable Lymphatics: Normal Respiratory: Rales, Rhonchi, Tachypnea Cardiovascular: Regular rate and rhythm, Normal S1, Normal S2 GI: Normal bowel sounds, Soft, Non tender, No masses, Obese Extremities/Musculoskeletal: Normal pulses, DJD Skin: Warm,Dry and Intact, No rashes Neurological: Normal speech, Strength at 5/5 X4 ext, Normal tone, Cranial nerves 3-12 NL Psych/Mental Status: Appropriate, Normal Affect, Cooperative - Assessment (1) Sepsis Acute A41.9 - SEPSIS, UNSPECIFIED ORGANISM Qualifiers: Sepsis type: sepsis due to unspecified organism Qualified Code(s): A41.9 - Sepsis, unspecified organism Comment/Plan: Admit. Criteria are tachycardia, fever, leukocytosis, and pneumonia. Continue sepsis protocol. Obtained blood and urine specimens for culture, sputum specimen also, and began rapid IV fluid replacement and IV antibiotics. Patient has improved dramatically with treatment. (2) Acute respiratory failure with hypoxia Acute J96.01 - ACUTE RESPIRATORY FAILURE WITH HYPOXIA Comment/Plan: Provide supplemental oxygen, monitor O2 sats & ABG as needed. DuoNeb and incentive spirometry. (3) Community acquired pneumonia Acute J18.9 - PNEUMONIA, UNSPECIFIED ORGANISM Comment/Plan: RLL infiltrate on CXR: begin IV antibiotics with Rocephin and Zithromax. Blood cultures- negative & CXR-improving. Maintain O2 sat above 92%. Anticipate discharge in AM, patient is improving. (4) UTI (urinary tract infection) Acute N39.0 - URINARY TRACT INFECTION, SITE NOT SPECIFIED Qualifiers: Urinary tract infection type: acute cystitis Hematuria presence: without hematuria Qualified Code(s): N30.00 - Acute cystitis without hematuria Comment/Plan: urine C&S + E. coli- pansensitive -continue with antibiotics as above. (5) Metabolic encephalopathy Acute G93.41 - METABOLIC ENCEPHALOPATHY Comment/Plan: Patient significantly improved. (6) Poorly controlled diabetes mellitus Acute E11.65 - TYPE 2 DIABETES MELLITUS WITH HYPERGLYCEMIA Comment/Plan: Monitor CBG prior to meals and at HS. Use SSI (moderate dose). Hg A1c=6.0 Follow diabetic diet. (7) Dehydration Acute E86.0 - DEHYDRATION Comment/Plan: Hydrate aggressively per sepsis protocol.
[2016-09-26] MEDS: ENOXAPARIN 60 MG/0.6 ML PFS SQ SCH (16:53)
[2016-09-26] MEDS: CEFTRIAXONE 1 GM in D5W 100 ML IV SCH (16:54)
[2016-09-26] MEDS: AMITRIPTYLINE 25 MG TAB PO SCH (21:34)
[2016-09-26] MEDS: AZITHROMYCIN 500 MG in D5W 250 ML IV SCH (21:39)
[2016-09-27] MEDS: ALBUTEROL 0.083% 3 ML NEB NEB SCH ×4 (02:08→19:22)
[2016-09-27] MEDS: SODIUM CHLORIDE 0.9% 3 ML FLUSH FLUSH SCH ×2 (05:02→16:40)
[2016-09-27] MEDS: PANTOPRAZOLE 40 MG TAB PO SCH (05:02)
[2016-09-27] MEDS: GABAPENTIN 800 MG TAB PO SCH ×3 (05:02→20:44)
[2016-09-27] MEDS: REGULAR INSULIN 100 UNITS/ML - 3 ML VIAL SQ SCH ×4 (05:36→20:44)
[2016-09-27] MEDS: METOPROLOL TARTRATE 25 MG TAB PO SCH ×2 (08:24→20:44)
[2016-09-27] MEDS: LISINOPRIL 10 MG TAB PO SCH (08:24)
[2016-09-27] MEDS: TOPIRAMATE 25 MG TABLET PO SCH ×2 (08:24→20:44)
[2016-09-27] MEDS: SIMVASTATIN 40 MG TAB PO SCH (08:24)
[2016-09-27] MEDS: LEVETIRACETAM 250 MG TAB PO SCH ×2 (08:25→20:44)
[2016-09-27] MEDS: POTASSIUM CHLORIDE 20 MEQ TAB PO SCH (08:25)
[2016-09-27] MEDS ORDERED: NS 1,000 ML IV SCH (09:00)
[2016-09-27] MEDS: ACETAMINOPHEN 325 MG/TAB TABLET PO PRN (11:49)
--- NOTE | 2016-09-27 11:53 | GENMEDPROG ---
Subjective Note: Has a fever this morning and increased respiratory rate. She notices some mild wheezing. Some pleuritic chest pain. Decreased appetite Current Medication List: Reviewed Currently: Reports: Cough, Wheezing, HERNANDEZ, SOB, Fever/Chills. Denies: Ambulating DVT Prophylaxis: Yes - Physical Examination Vital Signs and I&O: Last Vital Signs Temp 101.7 F H 09/27/16 11:49 Pulse 115 09/27/16 08:30 Resp 18 09/27/16 08:00 BP 125/81 09/27/16 08:00 Pulse Ox 90 L 09/27/16 08:00 Oxygen Pulse Oxygen Saturation 90 O2 Device Room Air Oxygen Flow Rate 1 Fraction of Inspired Oxygen ( FIO2) Intake & Output 09/24/16 09/25/16 09/26/16 09/27/16 23:59 23:59 23:59 23:59 Intake Total 920 6939 3162 1445 Output Total 2000 600 300 Balance 920 4928 2562 1145 Patient's weight 100.062 kg 102.421 kg 104.78 kg 107.093 kg General: Alert, Oriented x3, Cooperative, No acute distress, Obese, Weakness ( Chronic) HEENT: Normal, Anicteric Sclera, Mucous membr. moist/pink Neck: Normal Trachea alignment, Normal inspection Lymphatics: Normal Respiratory: Rales, Tachypnea Cardiovascular: Regular rate and rhythm, Normal S1, Normal S2. negative: LE Edema GI: Normal bowel sounds, Soft, Non tender, No masses, Obese Extremities/Musculoskeletal: Normal pulses, DJD Skin: Warm,Dry and Intact, No rashes Neurological: Normal speech, Normal tone, Other (Slow to answer questions) Psych/Mental Status: Appropriate, Normal Affect, Cooperative Lab/DI/Studies Reviewed: Intake & Output 09/24/16 09/25/16 09/26/16 09/27/16 23:59 23:59 23:59 23:59 Intake Total 920 4349 3162 2388 Output Total 1999 600 1100 Balance 920 4928 2562 1288 Patient's weight 100.062 kg 102.421 kg 104.78 kg 107.093 kg 09/25/16 06:15 09/25/16 06:15 - Assessment (1) Sepsis Acute A41.9 - SEPSIS, UNSPECIFIED ORGANISM Qualifiers: Sepsis type: sepsis due to unspecified organism Qualified Code(s): A41.9 - Sepsis, unspecified organism Comment/Plan: Sepsis markers have improved however the patient is still short of breath. Repeat chest x-ray add IV Lasix, DC IV fluid (2) Community acquired pneumonia Acute J18.9 - PNEUMONIA, UNSPECIFIED ORGANISM Comment/Plan: Patient was improving until this morning. She is going to stay on IV antibiotics. Will try a dose of IV Lasix. (3) Acute respiratory failure with hypoxia Acute J96.01 - ACUTE RESPIRATORY FAILURE WITH HYPOXIA Comment/Plan: Provide supplemental oxygen, monitor O2 sats & ABG as needed. DuoNeb and incentive spirometry. (4) Poorly controlled diabetes mellitus Acute E11.65 - TYPE 2 DIABETES MELLITUS WITH HYPERGLYCEMIA Comment/Plan: Monitor CBG prior to meals and at HS. Use SSI (moderate dose). Hg A1c=6.0 Follow diabetic diet. (5) UTI (urinary tract infection) Acute N39.0 - URINARY TRACT INFECTION, SITE NOT SPECIFIED Qualifiers: Urinary tract infection type: acute cystitis Hematuria presence: without hematuria Qualified Code(s): N30.00 - Acute cystitis without hematuria Comment/Plan: urine C&S + E. coli- pansensitive -continue with antibiotics as above. - Plan DC IV fluids will try 1 dose of Lasix as she is fluid up. Repeat chest x-ray follow labs Case Care Discussed with: Patient, Family, Nursing Staff Education/Counseling Given To: Patient Education/Counseling Given Regarding: Diagnosis, Treatment Total Time: 30 minutes Critical Care: No Code: 14813 (12+)
[2016-09-27] MEDS ORDERED: FUROSEMIDE 40 MG/4 ML VIAL IV ONE (13:00)
[2016-09-27] MEDS: CEFTRIAXONE 1 GM in D5W 100 ML IV SCH (16:39)
[2016-09-27] MEDS: ENOXAPARIN 60 MG/0.6 ML PFS SQ SCH (16:40)
[2016-09-27] MEDS: AMITRIPTYLINE 25 MG TAB PO SCH (20:44)
[2016-09-27] MEDS: AZITHROMYCIN 500 MG in D5W 250 ML IV SCH (20:47)
[2016-09-28] MEDS: ALBUTEROL 0.083% 3 ML NEB NEB SCH ×4 (01:20→19:24)
[2016-09-28 04:37] LABS: MPV 9.1 fL (7.4-10.4)
[2016-09-28 04:53] LABS: BLOOD UREA NITROGEN 17 MG/DL (7-17); CALCIUM 8.3 MG/DL (8.4-10.2); CALCULATED OSMOLALITY 282 MOs/Kg (270-290); CHLORIDE 107 mEq/L (98-107); GLUCOSE 84 MG/DL (70-99); SODIUM LEVEL 146 mEq/L (137-146)
[2016-09-28] MEDS: GABAPENTIN 800 MG TAB PO SCH ×3 (05:37→20:35)
[2016-09-28] MEDS: MetFORMIN, EXT REL 500 MG TAB PO SCH (05:37)
[2016-09-28] MEDS: PANTOPRAZOLE 40 MG TAB PO SCH (05:37)
[2016-09-28] MEDS: SODIUM CHLORIDE 0.9% 3 ML FLUSH FLUSH SCH ×2 (05:38→16:54)
[2016-09-28 05:50] LABS: SEG NEUTROPHIL 55 % (45-76)
[2016-09-28] MEDS: REGULAR INSULIN 100 UNITS/ML - 3 ML VIAL SQ SCH ×4 (06:03→20:56)
--- NOTE | 2016-09-28 08:03 | DIRPT ---
CLINICAL DATA: Shortness of breath, hypoxia EXAM: PORTABLE CHEST 1 VIEW COMPARISON: 09/26/2016 chest radiograph. FINDINGS: Stable cardiomediastinal silhouette with normal heart size. No pneumothorax. No pleural effusion. Patchy consolidation throughout the mid to lower right lung is minimally improved. Mild patchy opacity at the left lung base is unchanged. IMPRESSION: Patchy consolidation throughout the mid to lower right lung, minimally improved. Stable mild patchy left basilar lung opacity. Findings likely represent multifocal pneumonia. Recommend follow-up PA and lateral post treatment chest radiographs in 6 weeks. Electronically Signed By: Scotty Humphreys M.D. On: 09/28/2016 08:01
[2016-09-28] MEDS: POTASSIUM CHLORIDE 20 MEQ TAB PO SCH (08:04)
[2016-09-28] MEDS: METOPROLOL TARTRATE 25 MG TAB PO SCH ×2 (08:04→20:35)
[2016-09-28] MEDS: LEVETIRACETAM 250 MG TAB PO SCH ×2 (08:04→20:35)
[2016-09-28] MEDS: SIMVASTATIN 40 MG TAB PO SCH (08:05)
[2016-09-28] MEDS: LISINOPRIL 10 MG TAB PO SCH (08:05)
[2016-09-28] MEDS: TOPIRAMATE 25 MG TABLET PO SCH ×2 (08:05→20:35)
--- NOTE | 2016-09-28 12:45 | GENMEDPROG ---
Subjective Note: Patient is feeling better today. She still has a little cough. She has not ambulated much and is normally independent at home per her report. Notes Reviewed: Yes Events from last night noted and discussed with Clinical Staff Current Medication List: Reviewed Currently: Reports: Cough (Minimal), Wheezing, HERNANDEZ, SOB. Denies: Fever/Chills, Ambulating (Has only been up to the chair) DVT Prophylaxis: Yes - Physical Examination Vital Signs and I&O: Last Vital Signs Temp 98.5 F 09/28/16 11:53 Pulse 67 09/28/16 11:53 Resp 18 09/28/16 11:53 BP 124/84 09/28/16 11:53 Pulse Ox 94 09/28/16 11:53 Oxygen Pulse Oxygen Saturation 94 O2 Device Room Air Oxygen Flow Rate 1 Fraction of Inspired Oxygen ( FIO2) Intake & Output 09/25/16 09/26/16 09/27/16 09/28/16 23:59 23:59 23:59 23:59 Intake Total 3110 3163 2384 632 Output Total 1999 600 1100 300 Balance 4928 2562 1288 332 Patient's weight 102.421 kg 104.78 kg 107.093 kg 107.048 kg General: Alert, Oriented x3, Cooperative, No acute distress, Obese, Weakness ( Chronic) HEENT: Normal, Anicteric Sclera, Mucous membr. moist/pink Neck: Normal Trachea alignment, Normal inspection Lymphatics: Normal Respiratory: Diminished (Fair excursion but decreased), Rhonchi (Faint rhonchi on the right) Cardiovascular: Regular rate and rhythm, Normal S1, Normal S2. negative: LE Edema GI: Normal bowel sounds, Soft, Non tender, No masses, Obese Extremities/Musculoskeletal: Normal pulses, DJD Skin: Warm,Dry and Intact Neurological: Normal speech, Normal tone, Other (Slow to answer questions) Psych/Mental Status: Appropriate, Normal Affect, Cooperative Lab/DI/Studies Reviewed: Intake & Output 09/25/16 09/26/16 09/27/16 09/28/16 23:59 23:59 23:59 23:59 Intake Total 1674 3164 2382 632 Output Total 1999 600 1100 300 Balance 4928 2562 1288 332 Patient's weight 102.421 kg 104.78 kg 107.093 kg 107.048 kg 09/28/16 03:04 09/28/16 03:04 - Assessment (1) Sepsis Acute A41.9 - SEPSIS, UNSPECIFIED ORGANISM Qualifiers: Sepsis type: sepsis due to unspecified organism Qualified Code(s): A41.9 - Sepsis, unspecified organism Comment/Plan: Is better today after IV Lasix. Chest x-ray showed only right- sided multifocal pneumonia (2) Community acquired pneumonia Acute J18.9 - PNEUMONIA, UNSPECIFIED ORGANISM Comment/Plan: Has a significant pneumonia per chest x-ray. She has weaned off oxygen but has not ambulated. Continue IV antibiotics (3) Acute respiratory failure with hypoxia Acute J96.01 - ACUTE RESPIRATORY FAILURE WITH HYPOXIA Comment/Plan: Weaned oxygen today. Will see what she does with some activity (4) Poorly controlled diabetes mellitus Acute E11.65 - TYPE 2 DIABETES MELLITUS WITH HYPERGLYCEMIA Comment/Plan: Monitor CBG prior to meals and at HS. Use SSI (moderate dose). Hg A1c=6.0 Follow diabetic diet. (5) UTI (urinary tract infection) Acute N39.0 - URINARY TRACT INFECTION, SITE NOT SPECIFIED Qualifiers: Urinary tract infection type: acute cystitis Hematuria presence: without hematuria Qualified Code(s): N30.00 - Acute cystitis without hematuria Comment/Plan: urine C&S + E. coli- pansensitive -continue with antibiotics as above. (6) Anemia Acute D64.9 - ANEMIA, UNSPECIFIED Qualifiers: Anemia type: unspecified type Qualified Code(s): D64.9 - Anemia, unspecified Comment/Plan: Has some baseline anemia but this is worse. May be related to aggressive hydration. Will check iron panel and check stools (7) Hypokalemia Acute E87.6 - HYPOKALEMIA Comment/Plan: Likely due to Lasix dose given yesterday. Will replace Case Care Discussed with: Patient, Nursing Staff Education/Counseling Given To: Patient Education/Counseling Given Regarding: Diagnosis, Treatment, Prognosis Total Time: 30 minutes Critical Care: No Code: 39384 (12+)
[2016-09-28 13:40] LABS: IRON(SERUM) < 10.0 ug/dL (37-170)
[2016-09-28] MEDS: CEFTRIAXONE 1 GM in D5W 100 ML IV SCH (16:53)
[2016-09-28] MEDS: ENOXAPARIN 60 MG/0.6 ML PFS SQ SCH (16:53)
[2016-09-28] MEDS: AMITRIPTYLINE 25 MG TAB PO SCH (20:35)
[2016-09-28] MEDS: AZITHROMYCIN 500 MG in D5W 250 ML IV SCH (20:36)
[2016-09-29] MEDS: ALBUTEROL 0.083% 3 ML NEB NEB SCH ×3 (02:46→15:13)
[2016-09-29 04:58] VITALS: BMI 36.7
[2016-09-29] MEDS: SODIUM CHLORIDE 0.9% 3 ML FLUSH FLUSH SCH (05:21)
[2016-09-29] MEDS: GABAPENTIN 800 MG TAB PO SCH ×2 (05:21→14:03)
[2016-09-29] MEDS: PANTOPRAZOLE 40 MG TAB PO SCH (05:21)
[2016-09-29] MEDS: MetFORMIN, EXT REL 500 MG TAB PO SCH (05:23)
[2016-09-29] MEDS: REGULAR INSULIN 100 UNITS/ML - 3 ML VIAL SQ SCH ×2 (06:01→12:17)
[2016-09-29] MEDS: LISINOPRIL 10 MG TAB PO SCH (07:36)
[2016-09-29] MEDS: LEVETIRACETAM 250 MG TAB PO SCH (07:36)
[2016-09-29] MEDS: METOPROLOL TARTRATE 25 MG TAB PO SCH (07:36)
[2016-09-29] MEDS: POTASSIUM CHLORIDE 20 MEQ TAB PO SCH (07:36)
[2016-09-29] MEDS: TOPIRAMATE 25 MG TABLET PO SCH (07:37)
[2016-09-29] MEDS: SIMVASTATIN 40 MG TAB PO SCH (07:37)
[2016-09-29 16:20] VITALS: BP 132/86; PULSE 86; TEMP 98.3
--- NOTE | 2016-09-29 17:36 | PCM.DCS92 ---
- Final/Secondary Discharge Diagnosis (1) Sepsis Acute A41.9 - SEPSIS, UNSPECIFIED ORGANISM Present on Admission: Yes sepsis due to unspecified organism A41.9 - Sepsis, unspecified organism Comment: correction from yesterday's note. Repeat CXR showed multifocal PNA on right and left. Is on room air, afebrile, ambulating short distances (2) Community acquired pneumonia Acute J18.9 - PNEUMONIA, UNSPECIFIED ORGANISM Present on Admission: Yes Comment: Needs repeat CXR in 4-6 weeks for resolution. Finish abx at home. (3) Acute respiratory failure with hypoxia Acute J96.01 - ACUTE RESPIRATORY FAILURE WITH HYPOXIA Present on Admission: Yes Comment: No oxygen requirement at d/c. (4) Poorly controlled diabetes mellitus Acute E11.65 - TYPE 2 DIABETES MELLITUS WITH HYPERGLYCEMIA Present on Admission: Yes Comment: A1c was 6. Increaseed sugars on admission likely due to infection. (5) UTI (urinary tract infection) Acute N39.0 - URINARY TRACT INFECTION, SITE NOT SPECIFIED acute cystitis without hematuria N30.00 - Acute cystitis without hematuria Comment: Had e coli UTI, pansensitive. Finish abx for PNA. (6) Anemia Acute D64.9 - ANEMIA, UNSPECIFIED unspecified type D64.9 - Anemia, unspecified Comment: Has some baseline anemia but this is worse. May be related to aggressive hydration. Will check iron panel and check stools (7) Hypokalemia Acute E87.6 - HYPOKALEMIA Comment: Likely due to Lasix dose given yesterday. Will replace Discharge Disposition: Discharge w/ Home Health Discharge Condition: Improved Cognitive Discharge Status: Unimpaired Fuctional Discharge Status: Walker Assistance Physician Follow up/Referrals: Carmen Miller NP [Primary Care Provider] - One Week (SOMEONE FROM THE HOSPITAL WILL CALL WITH FOLLOW UP APPOINTMENT) New Prescriptions: Azithromycin [Zithromax] 500 mg PO DAILY #7 tablet Cefuroxime Axetil [Ceftin] 500 mg PO BID #14 tablet O2 Device: Room Air Diet at Discharge: Diabetic Activity: As Tolerated Call Office For: Fever over 100.5, Other (See Details) (Increasing cough for shortness of breath) - DC Summary Notes Home Health Need / Care Home Services:: The patient has been admitted for a pneumonia. She has limited mobility at baseline with a rolling walker. This has declined during her hospitalization and she has weakness making it very difficult for her to leave her home and therefore she is considered homebound. Home health home health PT is necessary for the patient to return to her baseline level of function. Hospital Course Note:: Discharge summary on patient named BARRY SWAN admitted to [facility] on 09/24/16 by Evette Perez MD. Date of discharge is [09/29/16]. See H&P for full details. The patient is a 60 yo female who presented to the ED after her noted that she was lethargic and weak. They both denied noting any recent URI sxs, fever, chills or other symptoms. She had told her she felt somewhat dizzy. She was noted to be tachycardic, febrile to 103 , with a CXR shwing a right sided PNA.WBC was 16. She had blood and urine culures done. She was admited to a telemetry floor. She was given supplemental oxygen. Blood cultures were negative but urine culture grew E. Coli which was pansensitive. She had been placed on rocephin and Zithromax. She weaned off oxygen . On 09/27/16, the patient was tachypneic and felt weaker than she had the day prior. She was given a dose of lasix and her fluids were discontinued. Repeat CXR noted below showed a multifocal pneumonia with new findings in her left base. No antibiotic changes were made and after diuresis she felt better. She was able to ambulate with PT with her rolling walker. Home health will be arranged to increase her strength. By the day of discharge she felt well enough to go home. Her mentation had returned to normal , she was off oxygen and oxygen saturations had stayed normal and her appetite had improved. Her blood sugars had been in the 300s in the hospital but her Hemoglobin A1C =6 so the elevation is likely due to illness. the patient was felt to have obtained maximal hospital benefit. Follow up with PCP to ensure the CXR findings fully resolve in 4-6 weeks. CXR Exam(s): [id number] RAD/DG CHEST PORTABLE CLINICAL DATA: Shortness of breath, hypoxia EXAM: PORTABLE CHEST 1 VIEW COMPARISON: 09/26/2016 chest radiograph. FINDINGS: Stable cardiomediastinal silhouette with normal heart size. No pneumothorax. No pleural effusion. Patchy consolidation throughout the mid to lower right lung is minimally improved. Mild patchy opacity at the left lung base is unchanged. IMPRESSION: Patchy consolidation throughout the mid to lower right lung, minimally improved. Stable mild patchy left basilar lung opacity. Findings likely represent multifocal pneumonia. Recommend follow-up PA and lateral post treatment chest radiographs in 6 weeks. Electronically Signed Total Time: 35 minutes Code: 06203 (>30min.) - Physical Exam Vital Signs: Last Vital Signs Temp 98.3 F 09/29/16 16:19 Pulse 86 09/29/16 16:19 Resp 18 09/29/16 16:19 BP 132/86 09/29/16 16:19 Pulse Ox 94 09/29/16 16:19 Oxygen Pulse Oxygen Saturation 94 O2 Device Room Air Oxygen Flow Rate 1 Fraction of Inspired Oxygen ( FIO2) Constitutional: No apparent distress, Alert, Other (obese) Oriented to: Time, Person, Place - HEENT Head: Normal Oropharynx: Normal Tympanic Membrane: Dull, Obscured (partially) ENT EAC: Cerumen Nose: Congestion - Respiratory/Cardiovascular Respiratory: Diminished (Fair excursion but decreased), Rhonchi (at bases bilaterally but faint.), Excursion (decreased excursion due to body habitus) Cardiovascular: Normal - GI Auscultation: Normal Palpation: Normal (soft, nontender, no mass, no hernia). negative: Enlarged liver, Enlarged spleen Tenderness: Non tender Rectal Exam: Deferred - Musculoskeletal Back: Normal Extremities: Normal, Pedal Pulse, Radial Pulse. negative: Edema - Integumentary Skin: Warm, Dry Lymphatics: Normal - Neurologic Memory Impaired: Short-term Motor Function: Normal Mood Description: Normal Thought: Coherent
== END 2016-09-29 17:54 | disposition home health service (06) | DRG 871 ==
LOC: ED 13:43 → PCU 16:56
PROVIDERS: ADMIT Family Medicine; ATTEND Family Medicine
PROC: 039B3ZZ Drainage of Right Radial Artery, Percutaneous Approach (ICD-10-PCS; principal; 2016-09-24)
DX: A41.9 Sepsis, unspecified organism (principal); J18.9 Pneumonia, unspecified organism; J96.01 Acute respiratory failure with hypoxia; G93.41 Metabolic encephalopathy; R56.9 Unspecified convulsions; E86.0 Dehydration; N30.00 Acute cystitis without hematuria; E11.65 Type 2 diabetes mellitus with hyperglycemia; B96.20 Unspecified Escherichia coli [E. coli] as the cause of diseases classified elsewhere; D64.9 Anemia, unspecified; E87.6 Hypokalemia; I10 Essential (primary) hypertension; E78.00 Pure hypercholesterolemia, unspecified; K21.9 Gastro-esophageal reflux disease without esophagitis; M19.90 Unspecified osteoarthritis, unspecified site; Z88.8 Allergy status to other drugs, medicaments and biological substances; Z79.899 Other long term (current) drug therapy
CPT/HCPCS: 36415; 36600; 71010; 71020; 80048; 80053; 80076; 81001; 82043; 82803; 82962; 83036; 83540; 83550; 83605; 83735; 83880; 84484; 85007; 85025; 85027; 85610; 85730; 87040; 87077; 87086; 87186; 93005; 94640; 96361; 96365; 96366; 96372; 97161; 98960; 99285; G0237; J0456; J0696; J1650; J1720; J1940; J1956; J3490; J7060; J7070